=== PATIENT | female | born 1980 | race Caucasian/White ===

== ENCOUNTER 2016-09-20 16:28 | Emergency (ER) | payer OTHER ==
[2016-09-20] MEDS ORDERED: HYDROmorphone 1 MG/ML SYRINGE IVP STA (17:03)
[2016-09-20] MEDS ORDERED: HYDROmorphone 1 MG/ML SYRINGE ONE (17:36)
[2016-09-20] MEDS ORDERED: IOPAMIDOL-300 100 ML VIAL IVP ONE (18:22)
[2016-09-20] MEDS ORDERED: KETOROLAC 60 MG/2 ML VIAL IVP STA (19:12)
[2016-09-20] MEDS ORDERED: KETOROLAC 30 MG/ML VIAL ONE (19:12)
== END 2016-09-20 19:36 | disposition home or self-care (01) ==
DX: S32.038A Other fracture of third lumbar vertebra, initial encounter for closed fracture (principal); S32.048A Other fracture of fourth lumbar vertebra, initial encounter for closed fracture; V00.131A Fall from skateboard, initial encounter; Y93.51 Activity, roller skating (inline) and skateboarding; G35 Multiple sclerosis
CPT/HCPCS: 74177; 96374; 96375; 99283; 99284; J1170; Q9967

== ENCOUNTER 2020-06-25 19:45 | Outpatient (CLI) | payer MEDICARE, OTHER | END 2020-06-25 19:46 | disposition home or self-care (01) | LOC: COV 19:45 | PROVIDERS: ATTEND Family Medicine | DX: R53.83 Other fatigue (principal); J02.9 Acute pharyngitis, unspecified; R09.81 Nasal congestion; Z20.828 Contact with and (suspected) exposure to other viral communicable diseases ==

== ENCOUNTER 2023-01-26 08:48 | Emergency (ER) | payer OTHER, MEDICARE ==
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
--- NOTE | 2023-01-26 09:35 | XRAY Report ---
PROCEDURE: Knee 4 View RT INDICATIONS: knee inj TECHNIQUE: 4 views of the right knee(s) were acquired. COMPARISON: None. FINDINGS: Bones: No fractures or dislocations. No suspicious bony lesions. Soft tissues: No knee joint effusion. No suspicious soft tissue calcifications or masses. IMPRESSION: No acute bony abnormality. If there remains a high clinical concern for fracture, including inability to bear weight, consider cross-sectional imaging to exclude an occult fracture. Reviewed by: Ozzie Amaya MD on 01/26/2023 9:34 AM PDT Approved by: Ozzie Amaya MD on 01/26/2023 9:34 AM PDT Station ID: [id number]
--- NOTE | 2023-01-26 09:48 | CT Report ---
PROCEDURE: HEAD WO INDICATIONS: head inj TECHNIQUE: Noncontrast 4.5 mm thick angled axial sections acquired from the foramen magnum to the vertex. For r adiation dose reduction, the following was used: automated exposure control, adjustment of mA and/or kV according to patient size. COMPARISON: Brain MRI dated 04/20/1960. FINDINGS: Image quality: Excellent. CSF spaces: Basal cisterns are patent. No extra-axial fluid collections. Ventricles are normal in size and shape. Brain: No midline shift. No intracranial masses or hemorrhage. Ruiz-white matter interface is norm al. Multifocal deep white matter areas of hypodensity are consistent with patient's known multiple sc lerosis. Skull and face: Calvarium and visualized facial bones are intact, without suspicious lesions. Sinuses: Visualized sinuses and mastoids are clear. IMPRESSION: 1. Known underlying multiple sclerosis with multifocal underlying deep white matter lesions. 2. No acute intracranial process. Reviewed by: Ozzie Amaya MD on 01/26/2023 9:47 AM PDT Approved by: Ozzie Amaya MD on 01/26/2023 9:47 AM PDT Station ID: [id number]
[2023-01-26 10:04] VITALS: BP 161/98
== END 2023-01-26 10:00 | disposition home or self-care (01) ==
LOC: ED 08:48
DX: S09.90XA Unspecified injury of head, initial encounter (principal); S80.01XA Contusion of right knee, initial encounter; V43.51XA Car driver injured in collision with sport utility vehicle in traffic accident, initial encounter; Y92.410 Unspecified street and highway as the place of occurrence of the external cause
CPT/HCPCS: 99283; 99284